=== PATIENT | male | born 1940 | race Caucasian/White ===

== ENCOUNTER 2016-07-12 09:07 | Outpatient (CLI) ==
[2016-07-12 13:15] LABS: BASOPHILS # (AUTO) 0.1 K/uL (0-0.2); EOSINOPHILS # (AUTO) 0.2 K/ul (0.0-0.7); EOSINOPHILS % (AUTO) 2.7 % (0.0-7.0); HEMATOCRIT 43.6 % (42.0-52.0); HEMOGLOBIN 14.5 g/dl (14.0-18.0); IMMATURE GRANULOCYTE % (AUTO) 0.4 % (0.0-5.0); LYMPHOCYTES # (AUTO) 1.7 K/uL (0.60-3.4); LYMPHOCYTES % (AUTO) 23.5 (10.0-50.0); MEAN CORPUSCULAR HEMOGLOBIN 31.9 pg (27.0-31.0); MEAN CORPUSCULAR HGB CONC 33.3 (31.8-35.4); MEAN CORPUSCULAR VOLUME 95.8 fl (80.0-94.0); MONOCYTES # (AUTO) 0.6 K/uL (0.4-2.0); MONOCYTES % (AUTO) 8.8 (0-10); NEUTROPHILS # (AUTO) 4.5 K/ul (2.0-6.9); NEUTROPHILS % (AUTO) 63.6; PLATELET COUNT 221 10^3/uL (140-440); RED BLOOD COUNT 4.55 10^6/ul (4.70-6.10); WHITE BLOOD COUNT 7.06 K/ul (4.2-10.2)
[2016-07-12 13:19] LABS: BILIRUBIN,URINE Negative (NEGATIVE); KETONES,URINE Negative (NEGATIVE); LEUKOCYTE ESTERASE ,URINE Negative (NEGATIVE); NITRITE,URINE Negative (NEGATIVE); PH,URINE 6.5 (5-9); PROTEIN,URINE Negative (NEGATIVE); URINE, BLOOD 1+ (NEGATIVE)
[2016-07-12 13:34] LABS: ADD URINE MICROSCOPIC YES
[2016-07-12 13:41] LABS: ALANINE AMINOTRANSFERASE < 6 U/L (12-78); ALBUMIN 3.9 g/dL (3.4-5.0); ALBUMIN/GLOBULIN RATIO 1.03; ALKALINE PHOSPHATASE 85 U/L (56-119); ANION GAP 14.1; ASPARTATE AMINO TRANSFERASE 12 U/L (15-37); BILIRUBIN,TOTAL 0.43 mg/dL (0.00-1.20); BLOOD UREA NITROGEN 26 mg/dL (7-18); BUN/CREATININE RATIO 12.09; CALCIUM 9.4 mg/dL (8.2-10.2); CARBON DIOXIDE 26 mmol/L (23-31); CHLORIDE 100 mmol/L (98-107); CHOLESTEROL 186 mg/dL (0-200); CREATININE 2.15 mg/dL (0.60-1.10); GLUCOSE 80 mg/dL (82-115); HDL CHOLESTEROL 46 mg/dL (35-60); POTASSIUM 4.1 mmol/L (3.5-5.1); SODIUM 136 mmol/L (136-145); TOTAL PROTEIN 7.7 g/dL (5.8-8.1); TRIGLYCERIDES 97 mg/dL (30-150); VLDL CHOLESTEROL 19 mg/dL (2-30)
== END 2016-07-12 09:08 | disposition home or self-care (01) ==
LOC: LAB 09:07
PROVIDERS: ATTEND General Practice
DX: I10 Essential (primary) hypertension (principal); N18.3 Chronic kidney disease, stage 3 (moderate); J44.9 Chronic obstructive pulmonary disease, unspecified; D64.9 Anemia, unspecified; R31.29 Other microscopic hematuria
CPT/HCPCS: 36415; 80053; 80061; 81001; 85025

== ENCOUNTER 2016-07-19 13:53 | Outpatient (CLI) | payer OTHER ==
[2016-07-19 17:12] LABS: BILIRUBIN,URINE Negative (NEGATIVE); KETONES,URINE Negative (NEGATIVE); LEUKOCYTE ESTERASE ,URINE Negative (NEGATIVE); NITRITE,URINE Negative (NEGATIVE); PH,URINE 6.5 (5-9); PROTEIN,URINE Negative (NEGATIVE); URINE, BLOOD 2+ (NEGATIVE)
[2016-07-19 17:18] LABS: ADD URINE MICROSCOPIC YES
== END 2016-07-19 13:54 | disposition home or self-care (01) ==
LOC: LAB 13:53
PROVIDERS: ATTEND General Practice
DX: R31.29 Other microscopic hematuria (principal)
CPT/HCPCS: 81001

== ENCOUNTER 2016-11-08 10:00 | Outpatient (CLI) | payer OTHER ==
[2016-11-08 13:08] LABS: BILIRUBIN,URINE Negative (NEGATIVE); KETONES,URINE Negative (NEGATIVE); LEUKOCYTE ESTERASE ,URINE Negative (NEGATIVE); NITRITE,URINE Negative (NEGATIVE); PH,URINE 6.5 (5-9); PROTEIN,URINE Negative (NEGATIVE); URINE, BLOOD 1+ (NEGATIVE)
[2016-11-08 13:13] LABS: BASOPHILS # (AUTO) 0.1 K/uL (0-0.2); BASOPHILS % (AUTO) 0.8 % (0.0-3.0); EOSINOPHILS # (AUTO) 0.2 K/ul (0.0-0.7); HEMATOCRIT 44.4 % (42.0-52.0); HEMOGLOBIN 15.1 g/dl (14.0-18.0); IMMATURE GRANULOCYTE % (AUTO) 0.3 % (0.0-5.0); LYMPHOCYTES # (AUTO) 1.9 K/uL (0.60-3.4); LYMPHOCYTES % (AUTO) 24.4 (10.0-50.0); MEAN CORPUSCULAR HEMOGLOBIN 32.5 pg (27.0-31.0); MEAN CORPUSCULAR VOLUME 95.7 fl (80.0-94.0); MONOCYTES # (AUTO) 0.7 K/uL (0.4-2.0); MONOCYTES % (AUTO) 8.6 (0-10); NEUTROPHILS # (AUTO) 4.9 K/ul (2.0-6.9); NEUTROPHILS % (AUTO) 62.9; PLATELET COUNT 219 10^3/uL (140-440); RED BLOOD COUNT 4.64 10^6/ul (4.70-6.10); WHITE BLOOD COUNT 7.78 K/ul (4.2-10.2)
[2016-11-08 13:16] LABS: ADD URINE MICROSCOPIC YES
[2016-11-08 13:49] LABS: ALBUMIN 4.1 g/dL (3.4-5.0); ALBUMIN/GLOBULIN RATIO 1.05; ANION GAP 15.1; BILIRUBIN,TOTAL 0.48 mg/dL (0.00-1.20); BUN/CREATININE RATIO 13.71; CALCIUM 9.6 mg/dL (8.2-10.2); CHOL/HDL RATIO 3.8 (4.5-6.4); CREATININE 2.26 mg/dL (0.60-1.10); POTASSIUM 4.1 mmol/L (3.5-5.1)
== END 2016-11-08 10:01 | disposition home or self-care (01) ==
LOC: LAB 10:00
PROVIDERS: ATTEND General Practice
DX: I10 Essential (primary) hypertension (principal); J44.9 Chronic obstructive pulmonary disease, unspecified; N18.3 Chronic kidney disease, stage 3 (moderate); D63.1 Anemia in chronic kidney disease; R31.29 Other microscopic hematuria
CPT/HCPCS: 36415; 80053; 80061; 81001; 85025

== ENCOUNTER 2017-07-16 09:39 | Outpatient (CLI) | payer OTHER | END 2017-07-16 09:40 | disposition home or self-care (01) | LOC: LAB 09:39 | PROVIDERS: ATTEND General Practice | DX: D64.9 Anemia, unspecified (principal); I10 Essential (primary) hypertension; Z79.899 Other long term (current) drug therapy | CPT/HCPCS: 36415; 80053; 80061; 81001; 85025 ==

== ENCOUNTER 2017-11-14 10:58 | Outpatient (CLI) | END 2017-11-14 10:59 | disposition home or self-care (01) | LOC: FCC-LAB 10:58 | PROVIDERS: ATTEND General Practice | DX: I10 Essential (primary) hypertension (principal); I71.4 Abdominal aortic aneurysm, without rupture; J44.9 Chronic obstructive pulmonary disease, unspecified; N18.3 Chronic kidney disease, stage 3 (moderate); D64.9 Anemia, unspecified; R31.29 Other microscopic hematuria; Z12.5 Encounter for screening for malignant neoplasm of prostate; Z79.899 Other long term (current) drug therapy | CPT/HCPCS: 36415; 80053; 80061; 81001; 85025 ==

== ENCOUNTER 2018-03-16 13:44 | Outpatient (CLI) | END 2018-03-16 13:45 | disposition home or self-care (01) | LOC: RHC-LAB 13:44 | PROVIDERS: ATTEND General Practice | DX: I10 Essential (primary) hypertension (principal); I71.4 Abdominal aortic aneurysm, without rupture; J44.9 Chronic obstructive pulmonary disease, unspecified; N18.4 Chronic kidney disease, stage 4 (severe); D63.1 Anemia in chronic kidney disease; R31.29 Other microscopic hematuria; Z79.899 Other long term (current) drug therapy | CPT/HCPCS: 36415; 80053; 80061; 85025 ==

== ENCOUNTER 2018-03-17 16:37 | Outpatient (CLI) | END 2018-03-17 16:38 | disposition home or self-care (01) | LOC: FCC-LAB 16:37 | PROVIDERS: ATTEND General Practice | DX: I71.4 Abdominal aortic aneurysm, without rupture (principal); I10 Essential (primary) hypertension; J44.9 Chronic obstructive pulmonary disease, unspecified; N18.4 Chronic kidney disease, stage 4 (severe); D63.1 Anemia in chronic kidney disease; R31.29 Other microscopic hematuria; Z79.899 Other long term (current) drug therapy | CPT/HCPCS: 81001 ==

== ENCOUNTER 2018-07-17 08:01 | Outpatient (CLI) | END 2018-07-17 08:02 | disposition home or self-care (01) | LOC: RHC-LAB 08:01 | PROVIDERS: ATTEND General Practice | DX: Z79.899 Other long term (current) drug therapy (principal); D64.9 Anemia, unspecified | CPT/HCPCS: 36415; 80053; 80061; 81001; 85025 ==

== ENCOUNTER 2018-10-26 11:04 | Inpatient (IN) ==
[2018-10-26] MEDS ORDERED: SODIUM CHLORIDE 1,000 ML IV STA (11:40)
--- NOTE | 2018-10-26 12:54 | CT ---
EXAM: CT scan of the chest without contrast HISTORY: Cough. Fever TECHNIQUE: Helical imaging of the chest was performed without intravenous contrast. 5 mm thin axial images and coronal and sagittal reconstructions were provided for interpretation. Comparison 08/12/2014. FINDINGS: The heart is normal size. No mediastinal abnormalities are seen. There is atheroscleroti c calcification of the thoracic aorta. Mild emphysematous changes are seen. There is no infiltrate or consolidation. No lytic or blastic lesions are seen within the osseous structures. There is atro phy of the right kidney. There has been previous cholecystectomy. IMPRESSION: No acute abnormalities are seen within the thorax. Mild pulmonary emphysema.
--- NOTE | 2018-10-26 13:03 | CT ---
EXAM: CT scan of the abdomen and pelvis without contrast HISTORY: pain, fever, cough, diarrhea, nausea TECHNIQUE: Helical imaging of the abdomen pelvis was performed without contrast. 5 mm thin axial im ages and coronal and sagittal reconstructions were provided for interpretation. Comparison CT scan of the abdomen pelvis dated 11/04/2014. FINDINGS: The liver, spleen, pancreas, appear normal. There is atrophy of the right kidney. There is mild dilatation of the small bowel loops seen in the anterior abdominal body gas and fluid. There is mild dilatation of the ascending colon by fluid. There is no free air. There is a new ostomy se en in the anterior abdominal wall on the left. The sigmoid colon terminates in the ostomy. 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 A rectal stump is identified. The appendi x was not seen. No definite inflammatory changes are seen in the right lower quadrant. There is dil atation of the infrarenal abdominal aorta measuring 4.0 cm AP, 4.3 cm transverse. Lung bases are hyun ar. No lytic or blastic lesions are seen within the osseous structures. IMPRESSION: Postoperative changes of distal colonic resection are again seen. There is mild dilatation of the proximal small bowel and proximal colon by fluid and this may represe nt gastroenteritis. Mild increasing size of a infrarenal abdominal aortic aneurysm measuring 4.3 cm transverse, 4.0 cm AP .
--- NOTE | 2018-10-26 13:34 | ED.PDOC ---
General ED Provider: Dr. DENICE SOLIMAN Chief Complaint: Fever Stated Complaint: FEVER, COUGH Time Seen by Physician: 11:11 (SEEN WITH THE ) Mode of Arrival: Wheelchair Information Source: Patient Exam Limitations: No limitations [facility] Nursing and Triage Documentation Reviewed and Agree: Yes Does patient meet sepsis criteria?: No If yes, has appropriate treatment been initiated?: No System Inflammatory Response Syndrome: Not Applicable Sepsis Protocol: For patient's 13 years and over: Temp is 96.8 and below OR 101 and greater Pulse >90 BPM Resp >20/minute Acutely Altered Mental Status Are patient's symptoms suggestive of a new infection, such as: -Pneumonia -Skin, Soft Tissue -Endocarditis -UTI -Bone, Joint Infection -Implantable Device -Acute Abdominal Infection -Wound Infection -Meningitis -Blood Stream Catheter Infection -Unknown Review of Systems - Review Of Systems Constitutional: Reports: Fever, Malaise, Weakness, Loss of appetite Eyes: Reports: No symptoms Ears, Nose, Mouth, Throat: Reports: No symptoms Respiratory: Reports: Cough Cardiac: Reports: No symptoms GI: Reports: Abdominal pain : Reports: No symptoms Musculoskeletal: Reports: No symptoms Skin: Reports: No symptoms Neurological: Reports: No symptoms Endocrine: Reports: No symptoms Hematologic/Lymphatic: Reports: No symptoms All Other Systems: Reviewed and Negative Past Medical History - Past Medical History Previously Healthy: Yes Endocrine: Reports: None Cardiovascular: Reports: Hypertension, Other (ANEURYSM ABDOMINAL) Respiratory: Reports: None Hematological: Reports: Anemia Gastrointestinal: Reports: None Genitourinary: Reports: None Neuro/Psych: Reports: None Musculoskeletal: Reports: None Cancer: Reports: None - Surgical History General Surgical History: Reports: None - Family History Family History: Reports: None - Social History Smoking Status: Current every day smoker Hx Substance Use: No Alcohol Screening: Occasionally - Immunizations Tetanus Shot up to Date: No Physical Exam - Physical Exam Appearance: Ill-appearing Ill-appearing: Mild Pain Distress: Mild Eyes: LALA, EOMI, Conjunctiva clear ENT: Ears normal, Nose normal, Oropharynx normal Respiratory: Rhonchi Cardiovascular: RRR, Pulses normal, No rub, No murmur GI/: Soft, Nontender, No masses, Bowel sounds normal, No Organomegaly Musculoskeletal: Normal strength, ROM intact, No edema, No calf tenderness Skin: Warm, Dry, Normal color Neurological: Sensation intact, Motor intact, Reflexes intact, Cranial nerves intact, Alert, Oriented Psychiatric: Affect appropriate, Mood appropriate Interpretation - Radiology Interpretation Radiology Interpretation By: Radiologist Radiology Results: No acute changes - Egg 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 NO OLD TRACING AVILABLE FOR COMPARE) Ectopy: PACs Drumore: NL Re-Evaluation - Re-Evaluation Time of Re-Evaluation: 12:00 Status: Improved Vital Signs Stable: Yes Pain Level: 0 Appearance: NAD Lungs: Clear Skin: Warm and Dry Neuro: Alert and Oriented X3 CV: RRR - Re-Evaluation Time of Re-Evaluation: 13:38 Status: Improved Vital Signs Stable: Yes Pain Level: 0 Appearance: NAD Skin: Warm and Dry Neuro: Alert and Oriented X3 CV: RRR (NO CHEST PAIN) Physician Notification - Case Discussed Physician Notified: PMD Time of Notification: 13:37 (EKG FINDINGS OF CONCERN DISCUSSED. PMD WOULD LIKE THE PT ADMITTED AT THIS TIME ) Admit/Transition Orders Entered by ED Provider: Yes Admit To: Inpatient Critical Care Note - Critical Care Note Total Time (mins): 0 Course - Course Hematology/Chemistry: 10/26/18 11:35 10/26/18 11:35 Orders, Labs, Meds: Lab Review 10/26/18 10/26/18 10/26/18 11:35 11:35 11:39 WBC 13.24 H RBC 3.88 L Hgb 12.5 L Hct 35.9 L MCV 92.5 MCH 32.2 H MCHC 34.8 RDW Coeff of Elsa 13.2 Plt Count 207 Immature Gran % (Auto) 0.5 Neut % (Auto) 88.5 Lymph % (Auto) 1.9 L Davie % (Auto) 8.9 Eos % (Auto) 0.0 Baso % (Auto) 0.2 Immature Gran # (Auto) 0.1 Neut # (Auto) 11.7 H Lymph # (Auto) 0.3 L Davie # (Auto) 1.2 Eos # (Auto) 0.0 Baso # (Auto) 0.0 Puncture Site Rrad O2 Saturation 95.0 ABG pH 7.383 ABG pCO2 30.3 L ABG pO2 76.0 L ABG HCO3 18.1 L ABG Total CO2 19 L ABG Base Excess -7 L Manuel Test + FiO2 % 21.0 Sodium 130.2 L Potassium 3.56 Chloride 95.9 L Carbon Dioxide 20.6 L Anion Gap 17.26 BUN 64.4 H* Creatinine 3.31 H Estimated GFR (MDRD) 18.00 BUN/Creatinine Ratio 19.45 Glucose 118.3 H Lactic Acid Calcium 8.25 L Total Bilirubin 0.55 AST 32.7 ALT 16.3 Alkaline Phosphatase 79.1 Total Creatine Kinase 83.4 Troponin I 0.023 Total Protein 6.99 Albumin 3.97 Globulin 3.02 Albumin/Globulin Ratio 1.31 Urine Color Urine Clarity Urine pH Ur Specific Wiley Urine Protein Urine Glucose (UA) Urine Ketones Urine Blood Urine Nitrite Urine Bilirubin Urine Urobilinogen Ur Leukocyte Esterase Urine Microscopic WBC Ur Squamous Epith Cells 10/26/18 10/26/18 11:52 12:25 WBC RBC Hgb Hct MCV MCH MCHC RDW Coeff of Elsa Plt Count Immature Gran % (Auto) Neut % (Auto) Lymph % (Auto) Davie % (Auto) Eos % (Auto) Baso % (Auto) Immature Gran # (Auto) Neut # (Auto) Lymph # (Auto) Davie # (Auto) Eos # (Auto) Baso # (Auto) Puncture Site O2 Saturation ABG pH ABG pCO2 ABG pO2 ABG HCO3 ABG Total CO2 ABG Base Excess Manuel Test FiO2 % Sodium Potassium Chloride Carbon Dioxide Anion Gap BUN Creatinine Estimated GFR (MDRD) BUN/Creatinine Ratio Glucose Lactic Acid 0.81 Calcium Total Bilirubin AST ALT Alkaline Phosphatase Total Creatine Kinase Troponin I Total Protein Albumin Globulin Albumin/Globulin Ratio Urine Color Yellow Urine Clarity Cloudy Urine pH 5.5 Ur Specific Wiley 1.010 Urine Protein 2+ Urine Glucose (UA) Negative Urine Ketones Negative Urine Blood 3+ Urine Nitrite Positive Urine Bilirubin Negative Urine Urobilinogen 0.2 Ur Leukocyte Esterase 2+ Urine Microscopic WBC Tntc Ur Squamous Epith Cells Not present Orders Category Date Time Status ABG DRAW REQUEST Stat CARDIO 10/26/18 11:39 Completed EKG-(ED ONLY) Stat CARDIO 10/26/18 11:38 Completed EKG-(ED ONLY) Stat CARDIO 10/26/18 13:22 Ordered ABG Stat LAB 10/26/18 11:39 Completed BLOOD CULTURE (ED ONLY) Stat LAB 10/26/18 11:52 Received CBC W/ AUTO DIFF Stat LAB 10/26/18 11:35 Completed COMPREHENSIVE METABOLIC PANEL Stat LAB 10/26/18 11:35 Completed CREATINE KINASE Stat LAB 10/26/18 11:35 Completed LACTIC ACID Stat LAB 10/26/18 11:52 Completed MOLECULAR GROUP A STREP Stat LAB 10/26/18 11:55 Received TROPONIN I Stat LAB 10/26/18 11:35 Completed URINALYSIS C & S IF INDICATED Stat LAB 10/26/18 12:25 Completed URINE CULTURE Stat LAB 10/26/18 12:38 Received Sodium Chloride 0.9% [Sodium Chloride] 1,000 ml MEDS 10/26/18 11:40 Active IV 125 mls/hr CT ABDOMEN/PELVIS WO CONTRAST Stat RADS 10/26/18 11:[address] CHEST W/O CONTRAST Stat RADS 10/26/18 11:39 Completed Medications Generic Name Dose Route Start Last Admin Trade Name Freq PRN Reason Stop Dose Admin Sodium Chloride 1,000 mls @ 125 mls/hr 10/26/18 11:40 10/26/18 11:52 Sodium Chloride IV 10/26/18 19:39 125 mls/hr .Q8H STA Administration Vital Signs: Temp Pulse Resp BP Pulse Ox 10/26/18 11:05 102.0 F H 86 24 142/72 H 94 L Departure - Departure Time of Disposition: 13:37 Disposition: ADMITTED INPATIENT Discharge Problem: Fever UTI (urinary tract infection) Qualifiers: Urinary tract infection type: site unspecified Hematuria presence: with hematuria Qualified Code(s): N39.0 - Urinary tract infection, site not specified ; R31.9 - Hematuria, unspecified Instructions: Urinary Tract Infection in Men (ED) Condition: Good Pt referred to PMD for follow-up: Yes IPMP verified?: No Additional Instructions: Please call your Family Physician as soon as possible to schedule a follow-up appointment. Allergies/Adverse Reactions: Allergies No Known Allergies Allergy (Verified 10/26/18 11:21) Home Medications: Ambulatory Orders Ergocalciferol (Vitamin D2) [Vitamin D2] 2,000 unit PO DAILY tab-cap 07/14/15 Cyanocobalamin (Vitamin B-12) [Vitamin B12] 2,500 mcg PO DAILY drop 11/06/15 Aspirin [Aspir 81] 81 mg PO DAILY 11/15/16 Disposition Discussed With: Patient, Family
[2018-10-26] MEDS ORDERED: ROCEPHIN 1 GM in SODIUM CHLORIDE 50 ML IV STA (13:41)
[2018-10-26] MEDS ORDERED: ROCEPHIN ONE (13:49)
[2018-10-26] MEDS ORDERED: SODIUM CHLORIDE 1,000 ML IV SCH (14:00)
[2018-10-26 15:00] VITALS: BMI 26.4
[2018-10-26] MEDS ORDERED: GENTAMICIN SULFATE 80 MG in SODIUM CHLORIDE 50 ML IV STA (19:02)
[2018-10-26] MEDS ORDERED: ASPIRIN EC PO STA (19:26)
[2018-10-26] MEDS ORDERED: GENTAMICIN SULFATE ONE (19:29)
[2018-10-26] MEDS ORDERED: SODIUM CHLORIDE 50 ML IV ONE (19:41)
[2018-10-26] MEDS: DEXTROSE 5%-LR IV SOLUTION 1,000 ML IV SCH (19:46)
[2018-10-26] MEDS ORDERED: NON-FORMULARY MEDICATION (Losartan Potassium [Cozaar] 50 MG) PO SCH (21:00)
[2018-10-27] MEDS ORDERED: COZAAR ONE (00:32)
[2018-10-27] MEDS: NORVASC PO SCH (08:26)
[2018-10-27] MEDS: HYDROCHLOROTHIAZIDE PO SCH (08:26)
[2018-10-27] MEDS: ROCEPHIN 1 GM in SODIUM CHLORIDE 50 ML IV SCH (08:26)
[2018-10-27] MEDS: ASPIRIN EC PO SCH (08:26)
[2018-10-27] MEDS: COZAAR PO SCH ×2 (08:27→21:17)
[2018-10-27] MEDS: DEXTROSE 5%-LR IV SOLUTION 1,000 ML IV SCH ×2 (08:28→21:19)
[2018-10-27] MEDS ORDERED: NON-FORMULARY MEDICATION (Hydrochlorothiazide [Hydrochlorothiazide] 12.5 MG) PO SCH (09:00)
[2018-10-27] MEDS ORDERED: GENTAMICIN SULFATE 80 MG in SODIUM CHLORIDE 50 ML IV STA (21:47)
[2018-10-27] MEDS ORDERED: GENTAMICIN SULFATE ONE (21:53)
[2018-10-28] MEDS: HYDROCHLOROTHIAZIDE PO SCH (09:38)
[2018-10-28] MEDS: NORVASC PO SCH (09:38)
[2018-10-28] MEDS: ROCEPHIN 1 GM in SODIUM CHLORIDE 50 ML IV SCH (09:38)
[2018-10-28] MEDS: ASPIRIN EC PO SCH (09:38)
[2018-10-28] MEDS: COZAAR PO SCH ×2 (09:38→20:26)
[2018-10-28] MEDS: DEXTROSE 5%-LR IV SOLUTION 1,000 ML IV SCH ×2 (09:43→22:12)
--- NOTE | 2018-10-28 11:17 | HP ---
DATE OF SERVICE: 10/26/18 CHIEF COMPLAINT: Chills, painful urination, not eating. HISTORY OF PRESENT ILLNESS: Mr. Hawkins is a pleasant 78-year-old patient who presented to the Emergency Department with a greater than 11 day history of chills and not eating. He reports the chills had become violent, violently shaking. When he presented to the Emergency Department, his temperature was 102. His white count was elevated at 13.24. Urinalysis was completed and did confirm that he had positive nitrites , 3+ blood, 2+ leukocyte esterase. He does have chronic kidney disease. On admission his BUN was 64.4, creatinine 3.31. His procalcitonin on admission was 18.03. A CT scan of the abdomen and pelvis was completed on admission. It did show postoperative changes of the distal colonic resection. There is mild dilatation of the proximal small bowel and proximal colon by fluid and this may represent gastroenteritis, mild increasing size of the infrarenal abdominal aortic aneurysm measuring 4.3 cm transverse and 4.[address] of the chest was completed on admission. This showed no acute abnormalities seen in the thorax with mild pulmonary emphysema. Because of the concerns for bacteremia, the patient was admitted for IV antibiotics and close observation. PAST MEDICAL HISTORY: Abdominal aortic aneurysm Anemia COPD Hypertension Colon cancer Chronic kidney disease, Stage 4 PAST SURGICAL HISTORY: Rectal surgery and ostomy placed 2004 FAMILY HISTORY: Cardiac disorders SOCIAL HISTORY: He is a smoker. Denies ETOH or substance abuse. MEDICATIONS: (HOME) Vitamin D2, 2000 units daily Vitamin B12, 2500 mcg p.o. daily Aspirin 81 mg daily Pj B 100 tablet daily Amlodipine 5 mg daily Losartan 50 mg tablet twice a day Hydrochlorothiazide 12.5 mg daily ALLERGIES: NKDA REVIEW OF SYSTEMS: CONSTITUTIONAL: Positive for chills as well as fever. He has also had increasing fatigue. 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 No reports of dizziness or ataxia. AUDITORY: No significant hearing loss. RESPIRATORY: He does have a history of COPD with a chronic history of smoking. CARDIOVASCULAR: No reports of chest pain, palpitations or lower extremity edema. GASTROINTESTINAL: He does have a history of colon cancer with ostomy. GENITOURINARY: As noted above. He does have a positive review of systems for dysuria and UTI symptoms. MUSCULOSKELETAL: Negative. ENDOCRINE: Negative. INTEGUMENT: No reports of rash or pruritus. HEMATOLOGIC: Negative. PSYCHIATRIC: Negative. PHYSICAL EXAMINATION: GENERAL: This is a pleasant 78-year-old patient of Dr. Mathis, who was admitted for a urinary tract infection with bacteremia. He began experiencing these symptoms approximately 11 days prior and the symptoms have progressively gotten worse. VITAL SIGNS: On admission, temperature 102, pulse rate 86, blood pressure 142/72 , respiratory rate 24, 02 sat 94% on room air. Height 5'8", weight 180 lbs. HEAD: Unremarkable. Face is symmetrical and equal. No facial weakness. No tenderness of the frontal or maxillary sinuses. EYES: Pupils equal/reactive to light, 3 mm in size. Conjunctivae not pale. Sclerae not icteric. EARS: External ears within normal limits. MOUTH: Dentures none in place. THROAT: No inflammation, no tumors, no exudate. NECK: No masses. No bruit. No tenderness. CHEST: Symmetrical, equal, no tenderness. LUNGS: Diminished throughout. No rales or wheezing. HEART: Audible and regular with good tones. No murmurs. ABDOMEN: Soft and nontender. Positive bowel sounds. He does have an ostomy in place to the left lower quadrant. EXTERNAL GENITALIA: Not examined. LOWER EXTREMITIES: No edema. Peripheral pulses are diminished but palpable. ASSESSMENT: 1. URINARY TRACT INFECTION WITH BACTEREMIA. 2. FEVER AND CHILLS. 3. LEUKOCYTOSIS WITH ELEVATED PROCALCITONIN LEVEL. 4. CHRONIC KIDNEY DISEASE, STAGE 4. 5. COPD. 6. HISTORY OF COLON CANCER WITH OSTOMY. 7. HISTORY OF ANEMIA. 8. HISTORY OF AAA. 9. HYPERTENSION. 10. TOBACCO USE. PLAN: 1. To continue antibiotics. 2. Continue to follow labs closely as well as his renal function which we will have to follow closely as well as carefully dose his antibiotics. 3. Further orders and recommendations per Dr. Mathis. TIME SPENT: GREATER THAN 65 MINUTES MTDD
--- NOTE | 2018-10-28 11:25 | PN ---
DATE OF SERVICE: 10/27/18 SUBJECTIVE: The patient is currently resting comfortably in no acute distress. He reports his bladder symptoms are much improved. He has no further chills. Dr. Mathis did discuss the patient's symptoms with the patient and explained that the infection was in his blood stream. The patient does verbalize understanding of this. He also explained to him that he is on two different antibiotics and that he would have to dose these antibiotics carefully due to his kidney function. His family was at the bedside. He was asking questions. The plan at this time is to continue his antibiotics. Vital signs today at 2 o'clock 98.4 temperature, pulse rate 69, blood pressure 120/59, respirations 20, 02 sat 100% on 2L/NC. RBCs 3.39, hemoglobin 10.7, hematocrit 31.7, platelet count 177, sodium 131.4, potassium 3.4, BUN 59.8, creatinine 3.07. Urinalysis on 10/26/18 yellow urine, blood 3+, nitrates positive. Will continue to follow this patient closely. Will plan to recheck blood work in the morning. DAMIEN
[2018-10-28] MEDS ORDERED: GENTAMICIN SULFATE 80 MG in SODIUM CHLORIDE 50 ML IV ONE (21:00)
[2018-10-29] MEDS: HYDROCHLOROTHIAZIDE PO SCH (07:59)
[2018-10-29] MEDS: ASPIRIN EC PO SCH (07:59)
[2018-10-29] MEDS: NORVASC PO SCH (07:59)
[2018-10-29] MEDS: COZAAR PO SCH (07:59)
[2018-10-29] MEDS: ROCEPHIN 1 GM in SODIUM CHLORIDE 50 ML IV SCH (08:00)
[2018-10-29] MEDS: DEXTROSE 5%-LR IV SOLUTION 1,000 ML IV SCH (10:25)
[2018-10-29 14:22] VITALS: BP 117/57; TEMP 98
--- NOTE | 2018-11-02 13:46 | PN ---
DATE OF SERVICE: 10/28/18 SUBJECTIVE: Today he is resting comfortably and up to the side of the bed. His is at the bedside. Today his bowel sounds are stable. On telemetry his heart rate is running 70-80 beats per minute. Normal sinus with PAC's and PVC's. Today he is afebrile with a temperature of 98.7, pulse rate 63, blood pressure 134/62, respiratory rate 20 and O2 saturation 98% on 2 liters per nasal canula. Labs were obtained this morning and his kidney functions remains stable, GFR 24, BUN 50.1 and creatinine 2.61. His procalcitonin has decreased to 5.98, hgb 10.7, hct 31.5 and WBC is down to 6.39. He does feel a lot better over all. He denies any chills or fever. Denies any abdominal or flank pain. PHYSICAL EXAMINATION: LUNGS: Clear but diminished HEART: Regular rate and rhythm, Normal sinus rhythm ABDOMINAL: Soft PLAN: 1. Continue to follow labs 2. Continue antibiotics at this time 3. Further orders and recommendations per Dr. Mathis. THIS NOTE IS DICTATED BY FABRICIO QUEZADA
--- NOTE | 2018-11-12 13:01 | DS ---
DATE OF SERVICE: 10/29/18 PATIENT IDENTIFICATION: 78 year old male who was initially seen at the emergency room because of chills and fever for the last 11 days with dysuria. The chills had increasingly became violent. The patient upon presentation to the emergency room had a temperature of 102. Bicarb was 13, 240. Urinalysis showed 3+ nitrites, 2+ blood, leukocyte esterase positive. The patient is known to have chronic kidney disease stage IV and his BUN on presentation was 64.4, creatinine 3.31. E GFR very low. Procalcitonin was 18.03. CT scan of the abdomen and pelvis, as well as chest showed no acute significant findings. The patient is known to have an abdominal aortic aneurysm and measures about 4.3 cm. The patient was felt to have a bacteremia, urinary tract infection. Urine cultures, plus blood cultures were obtained in the emergency room. HOSPITAL COURSE: His general appearance is one of a sickly individual with a very sallow color. He just doesn't feel good. He still is smoking and smokes more than a pack of cigarettes a day. LUNGS: Diminished breath sounds throughout. Air exchange is markedly diminished. No rales heard. HEART: Audible and regular with good tones, no murmurs. ABDOMEN: Nontender with a colostomy in the left lower quadrant, upper area. LOWER EXTREMITIES: Pedal pulses presentations, but diminished. The patient was given Ceftriaxone 1 gram in the emergency room. He also was initiated in normal saline 1000 cc at 75 cc per hour. I added Gentamicin 1 gram every 24 hours more or less, but discussed the dose with the hospital pharmacist. The dose was given not under her regular order, but done every day depending on his situation. The patient, however, more or less received one dose of Gentamicin every 24 hours 80 mg. The patient also was continued on his blood pressure medication, Amlodipine, plus Losartan, Hydrochlorothiazide, Aspirin 325 mg daily once and then 81 mg daily there after. The patient's subsequent temperature has trended towards normal with a low grade spike 100.3 at 10 a.m. 10/26/2018. The patient's temperature since then had returned to normal and remained normal until the time of discharge 2018 at 2 p.m. the temperature is 98 orally. Blood cultures became positive the next day and was identified as E.Coli, both in the blood, as well as the urine. Sensitivity profile is the same. E.Coli is ESBL negative and sensitive to Ceftriaxone, as well as Gentamicin. It is resistant to Bactrim, Levofloxacin , Cipro, Cefazolin, Ampicillin/Sulbactam, Ampicillin/Clavulanate, as well as Ampicillin. It is intermediate to Piperacillin/Tazobactam. The patient's WBC returned to normal the following day and remained normal. The patient has moderate to severe anemia, which is a chronic problem. It is being followed by the surgeon who did his colonic surgery, as well as a architect in training for the chronic kidney disease. BUN on admission was 64.4, creatinine 3.31, E GFR 18. Next day, 59.9, creatinine 3.07, EGFR 20. On 2018, the BUN came down to 50 and the creatinine reduced to 2.61, E GFR increased to 24. On the day of discharge from acute care the BUN was 41.4, creatinine is down to 2.44, E GFR is 26. The patient's blood sugar is slightly elevated and that had returned to normal on 10/29/2018. The lactic acid initially was normal and it was not repeated. The Procalcitonin on admission was 18.03 and did come down the next day to 11.98 and on 10/28/2018 the Procalcitonin is down to 5.98. The patient's well being also has improved and he was feeling much better. He ate breakfast the following day at 75%, 50% of lunch, 75% of supper. On 10/28/2018 it was about the same amount of food consumption. On 10/29/2018 it was much better at 90% at breakfast and 90% at lunch. VITAL SIGNS: On discharge 10/29/2018 showed a temperature of 98.0, pulse 63, blood pressure 117/57, respiratory rate 18, oxygen saturation 98 at room air. LUNGS: Still has diminished breath sounds in both sides. No rales or wheezing. The color is better and the patient is much stronger and he is now sitting on the bedside. He denies any chilly sensations or any chills anymore. FINAL DIAGNOSES: 1. URINARY TRACT INFECTION WITH E.COLI BACTEREMIA, IMPROVED 2. HISTORY OF RECTAL CARCINOMA TREATED WITH ABDOMINOPERINEAL RESECTION 3. HISTORY OF CHRONIC KIDNEY DISEASE STAGE IV FOLLOWED BY RETAIL DISTRICT MANAGER 4. CHRONIC OBSTRUCTIVE PULMONARY DISEASE MODERATELY SEVERE 5. CHRONIC TOBACCO USE AND ABUSE, PERSISTENT 6. HISTORY OF ANEMIA, MODERATE 7. HISTORY OF TRIPLE A ABDOMEN 4.3 CM 8. HISTORY OF HYPERTENSION This patient will be continued on Rocephin, as well as Gentamicin. TIME SPENT: GREATER THAN 30 MINUTES MTDD
== END 2018-10-29 14:25 | disposition swing bed (61) | DRG 690 ==
LOC: ED 11:04 → MEDSURG A 13:46 → SCU 21:30
PROVIDERS: ADMIT General Practice; ATTEND General Practice
DX: N39.0 Urinary tract infection, site not specified (principal); N18.4 Chronic kidney disease, stage 4 (severe); I71.4 Abdominal aortic aneurysm, without rupture; I10 Essential (primary) hypertension; J44.9 Chronic obstructive pulmonary disease, unspecified; D64.9 Anemia, unspecified; D72.829 Elevated white blood cell count, unspecified; R05 Cough; R53.81 Other malaise; R53.1 Weakness; R63.0 Anorexia; R10.9 Unspecified abdominal pain; R31.9 Hematuria, unspecified; R30.0 Dysuria; Z72.0 Tobacco use
CPT/HCPCS: 36415; 80053; 81001; 82550; 82803; 83605; 84145; 84484; 85007; 85025; 87040; 87070; 87086; 87186; 87502; 87651; 93005; 93010; 96361; 96365; 99284

== ENCOUNTER 2018-10-29 14:27 | Inpatient (IN) ==
[2018-10-29 15:23] VITALS: BMI 26.3
[2018-10-29] MEDS ORDERED: GENTAMICIN SULFATE 80 MG in SODIUM CHLORIDE 50 ML IV STA (16:21)
[2018-10-29] MEDS: COZAAR PO SCH (20:58)
[2018-10-29] MEDS: GENTAMICIN SULFATE 80 MG in SODIUM CHLORIDE 50 ML IV SCH (20:59)
[2018-10-29] MEDS ORDERED: NON-FORMULARY MEDICATION (Losartan Potassium [Cozaar] 50 MG) PO SCH (21:00)
[2018-10-29] MEDS: DEXTROSE 5%-LR IV SOLUTION 1,000 ML IV SCH (22:15)
[2018-10-30] MEDS: DEXTROSE 5%-LR IV SOLUTION 1,000 ML IV SCH (05:51)
[2018-10-30] MEDS: ROCEPHIN 1 GM in SODIUM CHLORIDE 50 ML IV SCH (08:01)
[2018-10-30] MEDS: ASPIRIN EC PO SCH (08:02)
[2018-10-30] MEDS: HYDROCHLOROTHIAZIDE PO SCH (08:02)
[2018-10-30] MEDS: NORVASC PO SCH (08:03)
[2018-10-30] MEDS: COZAAR PO SCH ×2 (08:03→20:24)
[2018-10-30] MEDS ORDERED: NON-FORMULARY MEDICATION (Hydrochlorothiazide [Hydrochlorothiazide] 12.5 MG) PO SCH (09:00)
[2018-10-30] MEDS ORDERED: D5%-1/2NS-KCL 20 MEQ/L IV SOL 1,000 ML IV SCH (10:30)
--- NOTE | 2018-10-30 10:39 | RS.PTINEVL ---
Subjective - Patient information Date of Evaluation: 10/30/18 Date of Arrival on Unit: 10/29/18 Admitted From:: Facility Transfer (swing bed transfer for IV antibiotics) Diagnosis: bacteremia, UTI, ecoli Usual Living Arrangement: With Spouse Living Arrangement Comments: pt lives in split level home with multiple steps Home Environment: House, Stairs (many), Rail Medical History: Hypertension, Cancer (colon) Medical History Comments:: AAA, kidney failure Surgical History: Colostomy Medications: see chart Subjective Information/ Patient Comments:: pt states that he is doing better and feels he could walk on his own if it weren't for the IV. - Level of function Prior to this admission, the patient could do the following:: Independent Selfcare, Independent ADL's, Independent Ambulation, Drive Current Level of Function: Partially Dependent Current Equipment Used at Home: none Interventions - Objective Patient Orientation: Person, Place, Time, Situation Current Interventions: IV's Range of Motion - ROM Right Upper Extremity AROM: WFL's Left Upper Extremity AROM: WFL's Right Lower Extremity AROM: WFL's Left Lower Extremity AROM: WFL's Muscle Strength - Muscle Strength Right Upper Extremity Strength: Normal Left Upper Extremity Strength: Normal Right Lower Extremity Strength: Mild Weakness Left Lower Extremity Strength: Mild Weakness Comments:: BLE 4+/5 Sensation - Sensation Right Upper Extremity Sensation: Intact/Normal Left Upper Extremity Sensation: Intact/Normal Right Lower Extremity Sensation: Intact/Normal Left Lower Extremity Sensation: Intact/Normal Palpation Palpation Findings: None/Normal Balance - Sitting Balance and Reactions Static Sitting Balance: Normal Dynamic Sitting Balance: Normal - Standing Balance and Reactions Static Standing Balance: Normal Dynamic Standing Balance: Good Functional Mobility - Bed Mobility Rolling R/L: Independent Scooting: Independent Supine to Sit: Independent Sit to Supine: Independent - Transfers Sit to Stand: Supervision Stand to Sit: Independent - Safety Awareness Safety Awareness: Good KARTIK INDEX SCORE: 95 Ambulation - Ambulation Assistive Device Used: Gait belt Orthotic/Prosthetic Device: No Distance: 140ft Assistance needed with Ambulation: Supervision, CGA Ambulation Comments: pt with difficulty with slip on houseshoes, sliding out of shoe 2x during amb, discussed with patient getting houseshoes with back on them or tennis shoes to amb. pt verbalized understanding. pt amb with slight increased lat sway. Required assist with IV pole. Factors Affecting Ambulation: Weakness, Limited Endurance Treatment time - Time with patient Length of Evaluation: 24 Total treatment time: 26 Patient Education - Education Patient Education: Home Safety Teaching Recipient: Patient Teaching Methods: Discussion Assessment - Assessment Problem List:: Weakness Rehab Potential: Good Further Therapy Indicated?: No Candidate for Swing Bed for Therapy Services?: pt is swing bed for IV antibiotics Comments: Feel pt would benefit from nursing to amb with patient due to IV pole. Advised pt to amb either in non skid footies or shoes with back because slip on houseshoes are unsafe because sliding off his feet. Evaluation Complexity: HISTORY: Medium, EXAM OF BODY SYSTEMS: Medium, CLINICAL PRESENTATION: Medium, CLINICAL DECISION MAKING: Medium Plan Other:: eval only Feel pt does not require skilled PT at this time. Frequency of Treatment: One time treatment Duration of Treatment: One Time Treatment Anticipated Discharge Destination: Home Treatment Diagnosis (ICD 10 Codes): muscle weakness M62.81 Has the Physician been added for Co-signature?: Yes
[2018-10-30] MEDS: D5%-1/2NS-KCL 20 MEQ/L IV SOL 1,000 ML IV SCH ×2 (11:08→20:28)
[2018-10-30] MEDS: GENTAMICIN SULFATE 80 MG in SODIUM CHLORIDE 50 ML IV SCH (20:24)
[2018-10-31] MEDS: COZAAR PO SCH ×2 (07:59→20:16)
[2018-10-31] MEDS: ROCEPHIN 1 GM in SODIUM CHLORIDE 50 ML IV SCH (07:59)
[2018-10-31] MEDS: ASPIRIN EC PO SCH (08:00)
[2018-10-31] MEDS: NORVASC PO SCH (08:00)
[2018-10-31] MEDS: HYDROCHLOROTHIAZIDE PO SCH (08:00)
[2018-10-31] MEDS: D5%-1/2NS-KCL 20 MEQ/L IV SOL 1,000 ML IV SCH (13:15)
[2018-10-31] MEDS: LOVENOX SUBCUT SCH (15:04)
[2018-10-31] MEDS: GENTAMICIN SULFATE 80 MG in SODIUM CHLORIDE 50 ML IV SCH (20:15)
[2018-11-01] MEDS: D5%-1/2NS-KCL 20 MEQ/L IV SOL 1,000 ML IV SCH ×2 (00:50→17:09)
[2018-11-01 05:16] VITALS: BP 131/57; TEMP 98
[2018-11-01] MEDS: ASPIRIN EC PO SCH (08:01)
[2018-11-01] MEDS: NORVASC PO SCH (08:01)
[2018-11-01] MEDS: COZAAR PO SCH (08:02)
[2018-11-01] MEDS: HYDROCHLOROTHIAZIDE PO SCH (08:02)
[2018-11-01] MEDS: ROCEPHIN 1 GM in SODIUM CHLORIDE 50 ML IV SCH (08:03)
[2018-11-01] MEDS: LOVENOX SUBCUT SCH (08:04)
--- NOTE | 2018-11-02 11:51 | PN ---
DATE OF SERVICE: 10/30/18 SUBJECTIVE: 78 year old male who was admitted to the hospital because of urinary tract infection with bacteremia. E-coli in the urine as well as e-coli in the blood on the three samples. It is resistant to Amoxicillin/Clavulanate, Ampicillin, Ampicillin Sulbactam, Cefazolin. Sensitive to Cefepime, Ceftriaxone, Ertapenem , Tobramycin. Intermediate to Tazobactam or Zosyn. Resistant to Levofloxacin, resistant to Cipro as well as Bactrim. This patient was placed on Ceftriaxone 1 gram initially on admission as well as Gentamicin 18mg once every 24 hours but was given everyday. I had consultation with pharmacist. Blood culture was positive for the next day. The patient is looking much better and general appearance is good. Vital signs 6pm 10/30/18 showed a temperature 97.7 orally, pulse 63, blood pressure 144/63, respiratory rate 14 and oxygen saturation 100% at room air. This patient is a heavy smoker. He had been afebrile for some time. LUNGS: Markedly diminished breath sounds in both sides with course breath sounds or expiratory course breath sounds. HEART: Normal sinus rhythm ABDOMEN: Colostomy is in place and no tenderness. The patient has chronic kidney disease stage 4. BUN today is 34.6, creatinine 2.27. EGFR is 28. Blood sugar 165.4. Procalcitonin 1.56 from a high of 18. Urinalysis showed specific gravity 1.005, trace protein, 1+ blood, nitrate negative, Leukocyte esterase negative. RBC 2-5, WBC 0-2, Epith cells not present. Specimen was good. Trough Gentamicin was 7.7 on 10/29/18. Peak was 1.3. I am not certain as to the time when it was drawn. This patient was getting 80mg of Gentamicin once every 24 hours. LUNGS: Still markedly diminished breath sounds. This is encouraged to take a deep breath and also encouraged to consider stopping smoking. MTDD
--- NOTE | 2018-11-02 13:03 | PN ---
DATE OF SERVICE: 10/31/18 SUBJECTIVE: The patient is alert and feeling good. His appetite is some better. He consumed 50% of breakfast, 50% of lunch, 25% supper. The vitals signs that patient has on 10/31/18 was 5:32am temperature 98.2, pulse 68, blood pressure 147/71, respiratory rate 18 and oxygen saturation 97% room air. LUNGS: Diminished breath sounds in both sides. Course expiratory breath sounds. HEART: Normal sinus rhythm ABDOMEN: Unremarkable LOWER EXTREMITIES: Denies any pain in both lower extremities with standing or walking. The patient will be kept for another day. We will give him 5th dose of the Gentamicin. Most likely discharge him tomorrow 11/01/18. MTDD
--- NOTE | 2018-11-10 14:48 | HP ---
DATE OF SERVICE: 10/29/18 CHIEF COMPLAINT: Urinary tract infection with E.coli bacteremia for continued antibiotic management. HISTORY OF PRESENT ILLNESS: The patient was seen at the emergency room 2018 because of chills and fever of 11 days duration with dysuria. The urinalysis was abnormal and the patient was given Rocephin 1 gram IV in the emergency room after the blood and urine cultures were obtained. Garamycin was added at 80 mg on that day on admission. Blood culture turned out to be positive the following day and the ID was E.Coli, ESBL negative and sensitive to Rocephin, as well as Garamycin. The patient's Procalcitonin was elevated on admission at 18.03 and gradually returned towards normal, but never back to normal at the discharge from acute care. The patient was feeling better and he was then discharged from acute care to [facility] for continued antibiotic management for the bacteremia. PAST PERSONAL HISTORY/PAST FAMILY HISTORY/SOCIAL HISTORY: Please refer to the previous admission on 10/26/2018 History and physical. MEDICATIONS: The same, except for the antibiotic that is now given. ALLERGIES: No known drug allergies. REVIEW OF SYSTEMS: CONSTITUTIONAL: The patient is alert, feeling better, no longer has any chills, but the color remains sallow. He is not dyspneic, nor tachypneic. Still tired , but feeling much better compared to admission. COST ESTIMATOR: Negative. GENITOURINARY: The patient no longer has the dysuria. The rest of the Systems Review is essentially the same as acute admission. 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 VITAL SIGNS: Temperature at 4:55 p.m. on 10/29/2018 was 98.0, pulse 63, blood pressure 117/57, respiratory rate 18, oxygen saturation 98 at 2 liters. 5'8", 173 pounds. HEAD: Unremarkable. Scalp with no active dermatitis. Face symmetrical and equal with no facial weakness and no tenderness in the frontal and maxillary sinus areas to palpation under pressure. EYES: Pupils equal/reactive to light about 3 mm in size. Conjunctivae pale. Sclerae not icteric. EXTERNAL EARS: Unremarkable. No pain on traction. MOUTH: Dentures, but none is in place at this time. THROAT: No inflammation, tumors or exudate. NECK: No masses. No bruit. No tenderness. No rigidity. CHEST: Symmetrical and equal with good expansion. No tenderness. LUNGS: Breath sounds are diminished in both sides, as well as anteriorly. No rales. Air exchange is markedly diminished. The patient is a chronic smoker and still persists on smoking. HEART: Audible and regular with good tones. No murmurs. ABDOMEN: Flat, soft with no remarkable tenderness. Bowel sounds are active. No bruit. This patient is known to have an abdominal aortic aneurysm at 4.3 cm in size. The colostomy is in the upper part of the left lower quadrant. EXTERNAL GENITALIA: Not examined. RECTAL: The patient had an abdominoperineal resection, although he has some drainage from time to time in the perineal area. He is being followed by the surgeon who did the procedure. LOWER EXTREMITIES: No significant edema. Pedal pulses are present, but diminished volume. UPPER EXTREMITIES: Symmetrical and equal. ASSESSMENT: 1. URINARY TRACT INFECTION WITH E.COLI BACTEREMIA THE REST OF THE DIAGNOSIS ARE THE SAME THE DISCHARGE ON 10/29/2018. TIME SPENT: GREATER THAN 65 MINUTES MTDD
--- NOTE | 2018-11-13 08:41 | DS ---
DATE OF SERVICE: 11/01/18 PATIENT IDENTIFICATION: 78 year old male was admitted to the hospital initially on 10/26/2018 because of fever and chills and dysuria. The patient was felt to have a urinary tract infection and probably bacteremia. Indeed the clinical impression was confirmed with a positive blood culture of E.Coli, ESBL negative and urine culture of E.Coli, ESBL negative also. E.Coli is sensitive to the medication that the patient was given on board prior to the ID of the bacteria. He was receiving Rocephin 1 gram IV daily and Garamicin 1 gram more or less every day on every 24 hours. This medication dose was discussed with the doctor of pharmacy at the hospital. The patient had responded well to the medication and his temperature has returned to normal the following day. The temperature had remained normal until discharge to [facility]. HOSPITAL COURSE: The patient while in [facility] also had a normal temperature. Blood pressure was fluctuating, but with no significant clinical implications. The patient's appetite more or less had maintained. No vomiting or diarrhea. CBC on 11/01/2018, the day of discharge, showed normal WBC, moderate anemia 11.3 grams hemoglobin, 33.6 hematocrit. MCV 95.5 and MCH 32.1, above normal. This patient will be given B12 injection post hospitalization. The BUN at discharge was 34.2, creatinine 2.47, GFR 25, blood sugar 113. Liver panel normal. Calcium normal, as well as phosphorous. Procalcitonin came down to 1.56 on 10/30/2018 and down to 0.50 on 11/01/2018. Repeat urinalysis on and 11/01/2018 is essentially the same. Gentamicin trough was 1.7 on . This patient was no longer given any Gentamicin after this, since he is being discharged. The patient at discharge is alert, ambulatory and cheerful and feeling much better. No nausea, no chest pain. LUNGS: Breath sounds are markedly diminished in both sides with coarse breath sounds. The air exchange seemed to have improved somewhat. This patient was advised to stop smoking, but the patient showed no interest in doing so. VITAL SIGNS: On 11/01/2018 at 5:15 a.m. showed the temperature 98 orally, pulse 61, blood pressure 131/57, respiratory rate 18, oxygen saturation 98 at room air. PLAN: The patient is to resume all of his medications prior to this admission. Advised to drink plenty of liquids. The patient is to see me more or less a week from the time of discharge and before if there is any concerns. The patient is to continue Rocephin 1 gram IV daily as an outpatient until I see him . FINAL DIAGNOSES: 1. URINARY TRACT INFECTION WITH E.COLI BACTEREMIA, RESOLVED 2. MODERATE ANEMIA 3. HISTORY OF CHRONIC KIDNEY DISEASE STAGE IV, PROBABLY THE REASON FOR THE ANEMIA 4. HISTORY OF RECTAL CARCINOMA TREATED WITH ABDOMINOPERINEAL RESECTION 5. CHRONIC OBSTRUCTIVE PULMONARY DISEASE, SEVERE 6. CHRONIC TOBACCO USE AND ABUSE, PERSISTENT 7. HISTORY OF HYPERTENSION PROGNOSIS: Guarded. TIME SPENT: GREATER THAN 30 MINUTES MTDD
== END 2018-11-01 18:20 | disposition home or self-care (01) | DRG 868 ==
LOC: SCU 14:27
PROVIDERS: ADMIT General Practice; ATTEND General Practice
DX: B96.20 Unspecified Escherichia coli [E. coli] as the cause of diseases classified elsewhere (principal); N18.4 Chronic kidney disease, stage 4 (severe); D64.9 Anemia, unspecified; I71.4 Abdominal aortic aneurysm, without rupture; I10 Essential (primary) hypertension; D72.829 Elevated white blood cell count, unspecified; J44.9 Chronic obstructive pulmonary disease, unspecified; R05 Cough; R53.81 Other malaise; R53.1 Weakness; R63.0 Anorexia; R10.9 Unspecified abdominal pain; R31.9 Hematuria, unspecified; R30.0 Dysuria; Z72.0 Tobacco use
CPT/HCPCS: 36415; 80053; 80069; 80170; 81001; 84145; 85025; 97802

== ENCOUNTER 2018-11-02 08:01 | Outpatient (CLI) | payer OTHER ==
[2018-11-02] MEDS ORDERED: ROCEPHIN 1 GM in SODIUM CHLORIDE 50 ML IV STA (08:22)
[2018-11-02 08:25] VITALS: TEMP 96.6
== END 2018-11-02 08:02 | disposition home or self-care (01) ==
LOC: OPMED 08:01
PROVIDERS: ATTEND General Practice
DX: B96.20 Unspecified Escherichia coli [E. coli] as the cause of diseases classified elsewhere (principal)
CPT/HCPCS: 96365

== ENCOUNTER 2018-11-03 08:02 | Outpatient (CLI) | payer OTHER ==
[2018-11-03] MEDS ORDERED: ROCEPHIN 1 GM in SODIUM CHLORIDE 50 ML IV STA (08:28)
[2018-11-03 08:43] VITALS: BP 132/66; TEMP 98.2
== END 2018-11-03 08:03 | disposition home or self-care (01) ==
LOC: OPMED 08:02
PROVIDERS: ATTEND General Practice
DX: B96.20 Unspecified Escherichia coli [E. coli] as the cause of diseases classified elsewhere (principal)
CPT/HCPCS: 96365

== ENCOUNTER 2018-11-04 06:56 | Outpatient (CLI) | payer OTHER ==
[2018-11-04 07:15] VITALS: BP 132/63; TEMP 97.8
[2018-11-04] MEDS ORDERED: ROCEPHIN 1 GM in SODIUM CHLORIDE 50 ML IV STA (07:18)
== END 2018-11-04 06:57 | disposition home or self-care (01) ==
LOC: OPMED 06:56
PROVIDERS: ATTEND General Practice
DX: N39.0 Urinary tract infection, site not specified (principal); B96.20 Unspecified Escherichia coli [E. coli] as the cause of diseases classified elsewhere
CPT/HCPCS: 96365

== ENCOUNTER 2018-11-05 07:44 | Outpatient (CLI) | payer OTHER ==
[2018-11-05 08:04] VITALS: BP 148/66
[2018-11-05] MEDS ORDERED: ROCEPHIN 1 GM in SODIUM CHLORIDE 50 ML IV STA (08:08)
== END 2018-11-05 09:40 | disposition home or self-care (01) ==
LOC: OPMED 07:44
PROVIDERS: ATTEND General Practice
DX: N39.0 Urinary tract infection, site not specified (principal); B96.20 Unspecified Escherichia coli [E. coli] as the cause of diseases classified elsewhere; J44.9 Chronic obstructive pulmonary disease, unspecified; I10 Essential (primary) hypertension; Z79.899 Other long term (current) drug therapy
CPT/HCPCS: 36415; 80053; 81001; 84145; 85025; 96365

== ENCOUNTER 2018-11-05 12:33 | Outpatient (CLI) | payer OTHER | END 2018-11-05 12:34 | disposition home or self-care (01) | LOC: RHC-LAB 12:33 | PROVIDERS: ATTEND General Practice | DX: J44.9 Chronic obstructive pulmonary disease, unspecified (principal); I10 Essential (primary) hypertension; Z79.899 Other long term (current) drug therapy | CPT/HCPCS: 36415; 80053; 81001; 84145; 85025 ==

== ENCOUNTER 2018-11-19 11:08 | Outpatient (CLI) ==
--- NOTE | 2018-11-19 12:58 | DI ---
Examination: Chest two views Clinical history: Cough The lungs are hyperinflated. Heart size is normal. Mitral valve annulus calcification is present. There is aortic arch calcification. No consolidative pneumonia or effusion. No vascular congestion. Mild right apical pleural thickening. Impression: 1. Hyperinflation compatible with obstructive/restrictive pulmonary disease. 2. No pneumonia or congestive heart failure 3. Aortic calcinotic atherosclerotic change.
== END 2018-11-19 11:09 | disposition home or self-care (01) ==
LOC: RAD 11:08
PROVIDERS: ATTEND General Practice
DX: R05 Cough (principal); J44.9 Chronic obstructive pulmonary disease, unspecified